=== PATIENT | male | born 1975 | race Hispanic/Latino ===

== ENCOUNTER 2024-09-26 10:29 | Emergency (ER) | payer OTHER ==
[~2024-09-26] VITALS: Ht 165.1 cm; Wt 70.3 kg
[2024-09-26 10:30] VITALS: BP 129/80; PULSE 76; RESP 18; TEMP 98.7
--- NOTE | 2024-09-26 10:41 | ERN ---
ED Note History of Present Illness Stated Complaint: FALL Chief Complaint: Mechanical Fall Time Seen by MD: 10:32 Dictation: PATIENT IS A 49-YEAR-OLD MALE COMING IN TODAY WITH COMPLAINTS OF A ABRASION TO THE LEFT LATERAL NECK AREA AND A HEAD INJURY AFTER HE SLIPPED AND FELL OUT OF HIS TRUCK THIS MORNING HE CLAIMS HE WAS CLIMBING IN HIS TRUCK WHEN HE LOST HIS BALANCE FELL BACKWARDS. HE DENIES ANY LOC NO NAUSEA VOMITING NO PERSONALITY CHANGES. HE WAS ABLE TO DRIVE HIMSELF TO [facility] WHERE HE WAS REFERRED, SUBSEQUENTLY WAS SENT OVER HERE TO RULE OUT BLEED OR HEAD INJURY. NIH IS 0 PATIENT IS ALERT AND ORIENTED X4 SPEECH IS CLEAR. SUPERFICIAL ABRASION DO NOT THE TWO NECK AND TETANUS SHOT IS UP TO DATE. PATIENT IS NOT ON ANY BLOOD THINNER NO TRAUMA ALERT CRITERIA Past Medical History RN Note Reviewed/Agreed w/PFSH: Yes Review of System Dictation CONSTITUTIONAL: NEGATIVE EXCEPT FOR HPI HEAD/FACE: NEGATIVE EXCEPT FOR HPI LEFT PARIETAL SCALP CONTUSION EENT: NEGATIVE EXCEPT FOR HPI RESPIRATORY: NEGATIVE EXCEPT FOR HPI GASTROINTESTINAL/ABDOMINAL: NEGATIVE EXCEPT FOR HPI GENITOURINARY: NEGATIVE EXCEPT FOR HPI MUSCULOSKELETAL: NEGATIVE EXCEPT FOR HPI INTEGUMENTARY: NEGATIVE EXCEPT FOR HPI ABRASION LEFT LATERAL NECK NEUROLOGICAL/PSYCH: NEGATIVE EXCEPT FOR HPI HEMATOLOGIC/LYMPHATIC: NEGATIVE EXCEPT FOR HPI ALL SYSTEMS NEGATIVE, EXCEPT NOTED ABOVE. 13 POINT REVIEW OF SYSTEMS ASSESSED AND ALL NEGATIVE EXCEPT FOR ABOVE. Physical Exam Dictation VITAL SIGNS REVIEWED GENERAL APPEARANCE: ALERT, ORIENTED X 3, MILD ACUTE DISTRESS, WELL DEVELOPED, NOURISHED. HEAD AND FACE: MILD LEFT PARIETAL TENDERNESS WITH PALPATION NO HEMATOMA NO D EPRESSIBLE LESION. EYES: PERRL, PINK CONJUNCTIVAS, EYELID NO TRAUMA, ANTERIOR CHAMBER WITH ARCUS SENILIS. EARS: PINNAS INTACT AND NO SIGNS OF TRAUMA OR ERYTHEMA EAR CANALS CLEAR AND NO DISCHARGE TM NO ERYTHEMA NO HEMOTYMPANUM, NO THOMAS OR RACCOON SIGN NOSE: NO DISCHARGE, NO BLEEDING. OROPHARYNX: MOUTH NORMAL, TONGUE PINK, PHARYNX CLEAR,NO ERYTHEMA, TONSILS NO EXUDATES, NO ABSCESSES NOTED, MUCOUS MEMBRANE MOIST NECK: SUPPLE, NON-TENDER, NO THYROMEGALY, NO MASSES, NO JVD, NO BRUITS BREAST:DEFERRED CHEST:NO TENDERNESS, NO CREPITUS, NO PARADOXICAL MOVEMENT, NO RETRACTIONS LUNGS:CLEAR, WELL-VENTILATED, SYMMETRIC, NO RALES, NO WHEEZING, NO RHONCHI, NO STRIDOR, GOOD BREATH SOUNDS BILATERALLY HEART: REGULAR RATE, REGULAR RHYTHM, NO MURMUR, NO GALLOPS VASCULAR: NO PERIPHERAL EDEMA, ABDOMEN: SOFT, POSITIVE BOWEL SOUNDS, NONDISTENDED, NO GUARDING, NONTENDER, NO REBOUND, NO MASSES NO HEPATOMEGALY, NO SPLENOMEGALY, NO BENAVIDES'S SIGN, NO HERNIAS. RECTAL: DEFERRED GENITAL: DEFERRED NEUROLOGICAL: NORMAL SPEECH, MOTOR FUNCTION INTACT, SENSORY FUNCTION INTACT MUSCULOSKELETAL: NECK NONTENDER, FULL RANGE OF MOTION, BACK NONTENDER, FULL RANGE OF MOTION, NO MIDLINE SPINE PAIN TO C-SPINE EXTREMITIES: NONTENDER, FULL RANGE OF MOTION SKIN: COLOR PINK, ABRASION TO LEFT LATERAL NECK. NO REPAIR REQUIRED. LYMPHATIC: DEFERRED Results (Laboratory/Radiology) Labs Reviewed?: Yes ED Course ED Course 1135 PATIENT IS ALERT AND ORIENTED X4 SPEECH CLEAR AND DROVE HIMSELF TO THE HOSPITAL. HE DOES NOT MEET CRITERIA FOR CT OF THE HEAD BASED ON CYPRIOT CT GUIDELINES. WE WILL DISCHARGE PATIENT HOME WITH A ABRASION AND CLOSED HEAD INJURY INSTRUCTIONS HAVE HIM FOLLOW UP WITH [facility] FOR MANAGEMENT OF HIS ON-THE-JOB INJURY. Medical Decision Making MDM MEDICAL DECISION-MAKING BASED ON ASSESSMENT IN TRIAGE AND HISTORY PATIENT DOES NOT MEET CRITERIA FOR CT OF THE HEAD WE WILL TREAT ABRASION WITH TRIPLE ANTIBIOTIC OINTMENT AND DRESSING, WE WILL GIVE TYLENOL FOR MINOR PAIN. PATIENT WILL BE REFERRED BACK TO [facility] FOR MANAGEMENT HE REMAINS ALERT AND ORIENTED X4 SPEECH IS CLEAR NIH IS 0 DX & DISP Disposition: Discharge Departure Impression: Primary Impression: Contusion of scalp, initial encounter Additional Impressions: Neck abrasion, Minor head trauma, Fall Condition: Stable Assign Patient to: FOLLOW-UP WITH PRIMARY CARE PROVIDER IN 1 TO 2 DAYS. TAKE MEDICATIONS DIRECTED HERE IN THE EMERGENCY ROOM. OKAY TO CONTINUE HOME MEDICATIONS UNLESS OTHERWISE DISCUSSED DURING YOUR VISIT IN THE EMERGENCY ROOM TODAY. RETURN TO YOUR NEAREST EMERGENCY ROOM IF SYMPTOMS WORSEN OR IF THERE IS NO IMPROVEMENT. CALL 911 IF YOU NEED IMMEDIATE ASSISTANCE. TAKE TYLENOL OR MOTRIN [id number] NEEDED AND IF NO CONTRAINDICATIONS ARE PRESENT. INCREASE ORAL HYDRATION. A WOUND CULTURE OR URINE CULTURE WAS ORDERED HERE IN THE EMERG ENCY ROOM DEPARTMENT PLEASE FOLLOW-UP WITH PRIMARY CARE PROVIDER AND ADVISE THEM TO GET REPEAT PORTS FROM OUR FACILITY. IF YOU HAD ANY TAMI WRAP/SPLINTS THAT WERE APPLIED HERE, PLEASE DO NOT REMOVE THEM UNTIL YOU SEE YOUR PRIMARY CARE OR SPECIALTY. TRIPLE ANTIBIOTIC OINTMENT 3 TIMES A DAY FOR FIVE DAYS TO ABRASION TO NECK. FOLLOW UP WITH YOUR INDUSTRIAL MEDICINE DOCTOR IN THE NEXT 1-2 DAYS FOR MANAGEMENT. RETURN TO THE EMERGENCY ROOM IF ANY CHANGES FROM HEAD INJURY INFORMATION SHEET. Time of Disposition: 10:39 I have reviewed the case, Diagnosis and Plan FIDEL MATTHEWS NP Sep 26, 2024 10:41
[2024-09-26] MEDS: NEOMY SULF/BACITRA/POLYMYXIN B 1 EACH PACKET TP ONE (10:49)
[2024-09-26] MEDS: acetaMINOPHEN 500 MG TABLET PO ONE (10:49)
== END 2024-09-26 11:04 | disposition home or self-care (01) ==
LOC: EDH 10:29
DX: S00.03XA Contusion of scalp, initial encounter (principal); S10.91XA Abrasion of unspecified part of neck, initial encounter; W01.0XXA Fall on same level from slipping, tripping and stumbling without subsequent striking against object, initial encounter; Y93.89 Activity, other specified; Y92.89 Other specified places as the place of occurrence of the external cause; Y99.8 Other external cause status
CPT/HCPCS: 99283